=== PATIENT | male | born 1955 | race Caucasian/White ===

== ENCOUNTER 2017-02-17 06:10 | Day surgery (SDC) | payer OTHER ==
[~2017-02-17] VITALS: Ht 182.9 cm; Wt 98.3 kg
[2017-02-17] VITALS (18 sets, daily range): BP systolic 99–137; BP diastolic 57–92; PULSE 60–127; RESP 18; TEMP 97.8–98.7; O2SAT 94–97
[~2017-02-17 06:10] MED LIST: ASPI81 PO; ENAL20TA81 PO; ZOCO40TA PO
[2017-02-17] MEDS ORDERED: POVIDONE IODINE 5% (ANTISEPSIS KIT) 4 APPLICATIONS EACH NARE PRN (06:45)
[2017-02-17] MEDS ORDERED: INSULIN HUMAN REGULAR 1,000 UNITS/10 ML VIAL SQ PRN (06:45)
[2017-02-17] MEDS ORDERED: CHLORHEXIDINE GLUCONATE 2 % 1 PACK (2 CLOTHS) TOPICAL PRN (06:45)
[2017-02-17] MEDS ORDERED: ceFAZolin 2 GM PREMIX 50 ML IV SCH (06:45)
[2017-02-17] MEDS ORDERED: LACTATED RINGER'S 1000 ML IV PRN (06:45)
[2017-02-17] MEDS ORDERED: CHLORHEXIDINE GLUCONATE 2 % 1 PACK (2 CLOTHS) TOPICAL SCH (06:45)
[2017-02-17] MEDS ORDERED: POVIDONE IODINE 5% (ANTISEPSIS KIT) 4 APPLICATIONS EACH NARE SCH (06:45)
[2017-02-17] MEDS ORDERED: METOPROLOL TARTRATE 25 MG TAB PO PRN (06:45)
[2017-02-17] MEDS ORDERED: MUPIROCIN 2% OINT 1 APPLIC/GM SYR NASAL SCH (06:45)
[2017-02-17] MEDS ORDERED: SODIUM CHLORID 0.9% 500 ML IV PRN (06:45)
[2017-02-17 07:04] LABS: BASOPHIL # 0.1 TH/MM3 (0-0.2); BASOPHIL % 1.2 % (0.0-2.0); EOSINOPHIL # 1.4 TH/MM3 (0-0.4); EOSINOPHIL % 11.3 % (0.0-4.0); HEMATOCRIT 42.2 % (39.0-51.0); HEMO FLAGS DIFF FINAL; LYMPH % 27.2 % (9.0-44.0); LYMPHOCYTE # 3.3 TH/MM3 (1.0-4.8); MEAN CELL VOLUME 92.2 FL (80.0-100.0); MEAN CORPUSCULAR HEMOGLOBIN 30.2 PG (27.0-34.0); MEAN CORPUSCULAR HGB CONC 32.7 % (32.0-36.0); MONO % 10.5 % (0.0-8.0); NEUT % 49.8 % (16.0-70.0); PLATELET COUNT 279 TH/MM3 (150-450); RED BLOOD COUNT 4.58 MIL/MM3 (4.50-5.90); RED CELL DISTRIBUTION WIDTH 13.8 % (11.6-17.2)
[2017-02-17] MEDS ORDERED: POTA10CA PO (07:14)
[2017-02-17] MEDS ORDERED: APIX5TAB PO (07:14)
[2017-02-17] MEDS ORDERED: METO50TA PO (07:14)
[2017-02-17] MEDS ORDERED: ASPI81TA5 PO (07:14)
[2017-02-17] MEDS ORDERED: LISI-515 PO (07:14)
[2017-02-17] MEDS ORDERED: FURO40TA PO (07:14)
[2017-02-17] MEDS ORDERED: ATOR1TAB18 PO (07:14)
[2017-02-17 07:16] LABS: APTT (PATIENT) 27.4 SEC (24.3-30.1); PROTHROMBIN TIME - PATIENT 10.6 SEC (9.8-11.6)
[2017-02-17 07:27] LABS: BICARBONATE 24.3 MEQ/L (21.0-32.0); POTASSIUM 6.1 MEQ/L (3.5-5.1)
[2017-02-17] MEDS ORDERED: PROPOFOL 200 MG/20 ML AMP IV ONE (07:30)
[2017-02-17] MEDS ORDERED: SODIUM CHLORID 0.9% 500 ML BAG IV ONE (07:30)
[2017-02-17] MEDS ORDERED: KETAMINE HCL 500 MG/10 ML VIAL ONE (07:47)
[2017-02-17] MEDS ORDERED: SODIUM CHLOR 0.9% 250 ML INJ 250 ML ONE (08:04)
[2017-02-17] MEDS ORDERED: ISOPROTERENOL HCL 1 MG/5 ML AMP ONE (08:04)
[2017-02-17] MEDS ORDERED: LIDOCAINE HCL 2% 50 ML VIAL ONE (08:08)
[2017-02-17] MEDS ORDERED: VANCOMYCIN HCL 1000 MG VIAL ONE (08:08)
[2017-02-17] MEDS ORDERED: VANCOMYCIN 500 MG VIAL ONE (08:08)
[2017-02-17] MEDS ORDERED: ceFAZolin INJ 1,000 MG VIAL ONE (08:09)
--- NOTE | 2017-02-17 08:42 | CATHPROC ---
[facility] HIS Report Study Information Study Number Scheduled Start Study Start 0969-17 02/17/2017 Feb 17 2017 7:41AM Referring Institution Admit Source Facility Department 1 Other [facility] - Gas Operation Manager Physician and Clinical Staff Initial Israel Villagran Sanitary Landfill Supervisor Mike Aguilar,RT(R) Sanitary Landfill Supervisor Joanne Blount,GIS PROGRAMMER TECH2 Other Anesthesia, SHUTTLE ROUTE VEHICLE OPERATOR Recorder Maryjo Lainez,RN Scrub Sonya Hernandez,RT(R) TECH2 Procedures Performed Procedure Cardioversion Equipment Time Bods Developer Description Size Mfg Part Number Used/Scraped [id number] 07:43 MEDLINE INDUSTRIES PACK, CCL CUSTOM * Used *[id number] 07:43 MEDLINE PACER ASTORGA, LIMB * 2530 Used [id number] 07:43 [place] [employer] BLANKET,WARM AIR CCL * Used *[id number] 07:44 [employer] MEDICAL CATHETER, JSN, QUAD FR 5 Used *[id number] 07:44 [employer] MEDICAL CATHETER, JSN, QUAD FR 5 Used *[id number] 07:44 [employer] MEDICAL CATHETER, JSN, QUAD FR 5 Used *[id number] 07:44 [employer] MEDICAL CATHETER, JSN, QUAD FR 5 Used *[id number] 07:43 [employer] MEDICAL SHEATH, EPS, FR5 FAST CATH FR 5 Used *[id number] 07:43 [employer] MEDICAL SHEATH, EPS, FR5 FAST CATH FR 5 Used *[id number] 07:43 [employer] MEDICAL SHEATH, EPS, FR5 FAST CATH FR 5 Used *[id number] 07:43 [employer] MEDICAL SHEATH, EPS, FR6 FAST CATH FR 6 [id number] Used History: Risk Factors Family History of Hypertension Dyslipidemia Previous MS Previous Heart Failure Premature CAD Yes Yes Yes No Yes Prior Valve Prior PCI Prior CABG Prior CABGDate Surgery Yes No Yes 01/31/2001 Cerebrovascular Peripheral Artery Chronic Lung On Dialysis Diabetes Disease Disease Disease No No No No No Medication Medication Total Dose (Bolus/Oral) Medication Total Dosage/Unit 1% XYLOCAINE 20 mL Medications (Bolus/Oral) Medication Time Given Dosage/Unit Administered By Reason 1% XYLOCAINE 02/17/2017 8:10:29 AM 20 mL Israel Biggs 20 mL 1% XYLOCAINE given in lab by Israel Biggs in Right Groin via Subcutaneous. Medication (Drip) Medication Time Given Dosage/Unit Concentration/Unit Diluent (ml) Solution ISUPREL 02/17/2017 8:30:08 AM 4 mcg/min 1 mg 250 NaCl .9 4 mcg/min ISUPREL given in lab by Israel Biggs via Peripheral IV. Pump/Drip Flow = 60 ml/hr using Na Cl .9 with a concentration of 1 mg in 250 ml. Ordered by Israel Biggs. ISUPREL DRIP STOPPED 02/17/2017 8:33:32 AM 0 units/hr 0 0 units/hr ISUPREL DRIP STOPPED given in lab by Israel Biggs. Pump/Drip Flow = 0 ml/hr using [Soluti on Name]. Ordered by Israel Biggs. Initial Case Assessment Cardiovascular HR Rhythm NIBP Chest Pain 82 AFIB 124/80 0 Edema Present Skin color Skin None Normal Warm Dry Circulatory - Right Pulses Dorsalis Pedis 1 Scale (0,1,2,3,4,d) Circulatory - Left Pulses Dorsalis Pedis 1 Scale (0,1,2,3,4,d) Neurological State Oriented to time-place- Alert Moves all extremities person Respiration - General Respiration Rate SpO2 (%) O2 (lpm) (B/min) 18 99 2 Chronological Log Time Study Chronological Log 7:30:10 Patient arrived via Bed. 7:30:15 Patient Name, D.O.B, / Armband Verified By R.N. 7:30:35 Anesthesia at bedside. Assumes care of patient. See records for all meds and vitals during procedure 7:31:00 Verbal Stimulation=2 Physical Stimulation=2 Airway=2 Respiration=2 TOTAL=8. (0=absent, 1=li mited, 2=present) 7:35:55 Skin Breakdown- non per patient 7:40:00 Patient Warmer Placed on the Table. 7:44:00 Disposable Defibrillator Pads Placed On Patient. 7:44:00 Mathieu Prominences Protected 7:45:00 History and physical on the chart or being dictated. Assessment: Initial Case, HR=82 BPM, Rhythm=AFIB, RBCJ=613/80 mmhg, Chest Pain=0, Edema=None, Color=Normal, Skin = Warm, Dry Right Pulses: Larry Ped=1 7:48:00 Left Pulses: Larry Ped=1 Neurological: State=Alert, Ox3, INFANTE Respiration: Resp=18 B/min, SpO2=99 %, O2=2 lpm 7:49:00 Table restraints applied according to hospital policy 7:50:00 Bilateral groins prepped with 2% chlorhexidine, and with a 3 min. waiting time. 7:50:28 Patient has been NPO for More than 6Hrs. 7:50:55 MD paged 7:50:56 A # 20 IV was noted in the Hand (left). Grade = 0 7:50:59 A # 20 IV was noted in the Forearm (right). Grade = 0 7:52:01 MD responded 7:52:29 Reference ECG taken Time Out. Correct patient, procedure, procedure equipment, site and side verified with physician present. Time 8:10:17 concurred by MD, individual staff and SHUTTLE ROUTE VEHICLE OPERATOR. Time Out #2 - Consents verified, patient in correct position, all results are labled and display ed, safety precautions 8:10:21 taken, antibiotics administered. Time out concurred by MD, individual staff and SHUTTLE ROUTE VEHICLE OPERATOR in procedur e 8:10:26 Case Start 8:10:29 20 mL 1% XYLOCAINE given in lab by Israel Biggs in Right Groin via Subcutaneous. 8:16:30 Vascular access was obtained in the Fem Vein (right). 8:16:33 Vascular access was obtained in the Fem Vein (right). 8:16:33 Vascular access was obtained in the Fem Vein (right). 8:16:34 Vascular access was obtained in the Fem Vein (right). 8:16:37 A SHEATH, EPS, FR5 FAST CATH FR 5 was advanced into the Fem Vein (right) using the Modified Seldinger technique. 8:17:39 A SHEATH, EPS, FR5 FAST CATH FR 5 was advanced into the Fem Vein (right) using the Modified Seldinger technique. 8:17:42 A SHEATH, EPS, FR5 FAST CATH FR 5 was advanced into the Fem Vein (right) using the Modified Seldinger technique. 8:17:44 A SHEATH, EPS, FR6 FAST CATH FR 6 was advanced into the Fem Vein (right) using the Modified Seldinger technique. A CATHETER, JSN, QUAD FR 5 was advanced vis Fem Vein (right) and placed in the CS. Placement was visually 8:17:58 confirmed under fluoroscopy. A CATHETER, JSN, QUAD FR 5 was advanced vis Fem Vein (right) and placed in the HRA. Placement wa s visually 8:18:08 confirmed under fluoroscopy. A CATHETER, JSN, QUAD FR 5 was advanced vis Fem Vein (right) and placed in the RVA. Placement wa s visually 8:18:28 confirmed under fluoroscopy. A CATHETER, JSN, QUAD FR 5 was advanced vis Fem Vein (right) and placed in the HIS. Placement wa s visually 8:19:02 confirmed under fluoroscopy. 8:19:19 EP STUDY IN PROGRESS 4 mcg/min ISUPREL given in lab by Israel Biggs via Peripheral IV. Pump/Drip Flow = 60 ml/hr usi ng NaCl .9 with a 8:30:08 concentration of 1 mg in 250 ml. Ordered by Israel Biggs. 0 units/hr ISUPREL DRIP STOPPED given in lab by Israel Biggs. Pump/Drip Flow = 0 ml/hr using [S olution Name]. 8:33:32 Ordered by Israel Biggs. 8:36:46 EP STUDY COMPLETE 8:37:06 ECG rhythm of AF noted. Patient cardioverted at 200 joules. ~RESULTS~ 8:37:47 EP Procedure was performed. 8:38:09 Case End 8:38:19 Catheter(s) removed without difficulty 8:38:35 Sheath removed; pressure applied to access site by Mike Wolfe. MANUAL PRESSURE HELD FOR 10 MS NS 8:38:52 Sterile dressing applied to site 8:38:55 No case complications noted. 8:38:58 Cine recording checked. End Study - Contrast Media Used In Study Contrast Total Opened (mL) Total Used (mL) Total Wasted (mL) Unspecified 0 0 0 End Study - Radiation Exposure Fluoro Time (minutes) 1.1 End Study - Patient Disposition Complications Transferred To Interventional Outcome No Gas Operation Manager Holding successful
--- NOTE | 2017-02-17 09:28 | CATHPROC ---
Viscose Closures HIS Report Study Information Study Number Scheduled Start Study Start 0970-17 02/17/2017 Feb 17 2017 8:43AM Referring Institution Admit Source Facility Department 1 Other [facility] Drop Machine Operator Physician and Clinical Staff Initial Israel Villagran Retarder Operator Mike Aguilar,RT(R) Retarder Operator Joanne Blount,SENIOR ENERGY TRADER TECH2 Other Anesthesia, PAYROLL EXAMINER Recorder Maryjo Lainez,RN Recorder Romelia Pardo,BOBBY Scrub Soyna Hernandez,RT(R) TECH2 Procedures Performed Procedure Lead Insertion Equipment Time Retail Coordinator Description Size Mfg Part Number Used/Scraped DERMABOND, ADHESIVE SKIN [id number] 08:45 CORDIS/PACER * Used GLUE MINI *[id number] 08:45 MEDLINE INDUSTRIES SUTURE, STRIP PLUS 1/2" * Used *[id number] 08:45 MEDLINE PACER ASTORGA, LIMB * 2530 Used [id number] 08:45 MEDLINE PACER PACK, PACER CUSTOM * Used *[id number] 08:57 Needle Sponge Count 2 2 Used 08:57 Needle Sponge Count 2 22 Used 08:57 Needle Sponge Count 20 200 Used SUTURE, 0 ETHIBOND [CT1] (CX21D), 8pk SUTURE, 2-0 VICRYL [CT1] ([id number]) SUTURE, 2-0 VICRYL [CT1] (YIX955U) [id number] 08:45 [place] [employer] BLANKET,WARM AIR CCL * Used *[id number] DEFIBRILLATOR, FORTIFY 09:21 [employer] Y[employer] MEDICAL VVEVVVIRV [id number] Used ASSURA VR LEAD, DURATA ACTIVE FIXATION 7121Q-65 09:07 [employer] MEDICAL 65CM Used 7121/65 *[id number] [facility] PAD, ELECTROSURGICAL 08:45 * [id number] Used SURGICAL GROUNDING ORANGE 08:45 [employer] RADHA. ELECTRODE, PRO-PADZ BIPHASIC * [id number] Used Equipment Model, Serial, Lot Number and Expiration Data Description Model Number Serial Number Lot Number Expiration Da te DEFIBRILLATOR, FORTIFY ASSURA [id number] 11-30-2018 VR LEAD, DURATA ACTIVE FIXATION 7121Q-65 [id number] 11-02-2017 7121/65 Medication Medication Total Dose (Bolus/Oral) Medication Total Dosage/Unit 2% XYLOCAINE 50 mL Medications (Bolus/Oral) Medication Time Given Dosage/Unit Administered By Reason 2% XYLOCAINE 02/17/2017 8:57:39 AM 50 mL Anesthesia, PAYROLL EXAMINER 50 mL 2% XYLOCAINE given in lab by Anesthesia, PAYROLL EXAMINER in Left shoulder via Subcutaneous. Ordered by Hanscy. Domenic left upper chest Medication (Drip) Medication Time Given Dosage/Unit Concentration/Unit Diluent (ml) Solution ANCEF 02/17/2017 8:12:18 AM 2 g 2 g ANCEF given in lab by Anesthesia, PAYROLL EXAMINER via Peripheral IV. Ordered by Israel Biggs. VANCOMYCIN DRIP 02/17/2017 8:12:59 AM 1 g 1 g VANCOMYCIN DRIP given in lab by Anesthesia, PAYROLL EXAMINER via Peripheral IV. Ordered by Israel Biggs. Final Case Assessment Cardiovascular HR Rhythm NIBP Chest Pain 62 A FIB 107/76 0 Edema Present Skin color Skin None Normal Warm Dry Circulatory - Right Pulses Dorsalis Pedis 1 Scale (0,1,2,3,4,d) Circulatory - Left Pulses Dorsalis Pedis 1 Scale (0,1,2,3,4,d) Neurological State Oriented to time-place- Alert Moves all extremities person Respiration - General Respiration Rate SpO2 (%) O2 (lpm) (B/min) 18 97 2 Chronological Log Time Study Chronological Log 8:12:18 2 g ANCEF given in lab by Anesthesia, PAYROLL EXAMINER via Peripheral IV. Ordered by Israel Biggs. 8:12:59 1 g VANCOMYCIN DRIP given in lab by Anesthesia, PAYROLL EXAMINER via Peripheral IV. Ordered by Kamlesh Biggs 8:43:21 Initial procedure has been completed. Beginning additional procedure. 8:43:22 NOTE: This patient is undergoing an additional procedure while still in the Cardiac Cath La b. 8:43:25 Anesthesia at bedside. Assumes care of patient. 8:53:00 Reference ECG taken 8:57:35 Case Start 50 mL 2% XYLOCAINE given in lab by Anesthesia, PAYROLL EXAMINER in Left shoulder via Subcutaneous. Ordered by Israel Biggs. 8:57:39 left upper chest 9:03:12 Vascular access was obtained in the Subclav. Vein (Lft. 9:03:19 Surgical Incision Made. 9:03:21 A pocket was created at the L Upper Chest. 9:07:46 A sheath was advanced into the Subclav. Vein (Lft using the ~TECHNIQUE~ technique. 9:09:01 A LEAD, DURATA ACTIVE FIXATION 7121/65 65CM was inserted and positioned in the RV. 9:09:40 Lead placement verified under fluoroscopy 9:09:41 The RV lead impedance and threshold being tested. 9:12:40 The RV lead was sutured to the fascia. 9:14:34 Pocket flushed with antibiotic solution SECOND Sponge And Instrument Count Done by Sonya Hernandez, RT(R) TECH2. 9:14:45 Hypo's: 2, Sponges: 20, Bovie/scratch: 2 Sutures: 10, Blades: 1, Instruments: 26, Syveck Patches: 0 verified by Mike Ellison 9:15:40 A DEFIBRILLATOR, FORTIFY ASSURA VR VVEVVVIRV was connected and placed in the pocket. 9:15:59 The pocket was closed. 9:16:59 Case End FINAL Sponge And Instrument Count Done by Sonya Hernandez RT(R) TECH2. 9:18:00 Hypo's: 2, Sponges: 20, Bovie/scratch: 2 Sutures: 10, Blades: 1, Instruments: 26, Syveck Patches: 0 verified by Mike Ellison 9:19:08 Implant Procedure was performed. 9:19:14 A ICD Implant . (Single) 9:22:07 DOCU called. Spoke to MAYRA 9:22:57 Steri-strips and a sterile dressing applied to site. Assessment: Final Case, HR=62 BPM, Rhythm=A FIB, WVAA=100/76 mmhg, Chest Pain=0, Edema=None, Color=Normal, Skin = Warm, Dry Right Pulses: Larry Ped=1 9:23:05 Left Pulses: Larry Ped=1 Neurological: State=Alert, Ox3, INFANTE Respiration: Resp=18 B/min, SpO2=97 %, O2=2 lpm 9:23:09 Sterile dressing applied to site 9:23:10 No case complications noted. 9:23:11 Cine recording checked. 9:23:14 Bedside Report will be given. 9:23:15 Implantable Device card placed in patient's chart. 9:23:17 Defibrillator and ground pads removed. Skin intact. 9:26:21 Patient moved to stretcher End Study - Contrast Media Used In Study Contrast Total Opened (mL) Total Used (mL) Total Wasted (mL) Unspecified 0 0 0 End Study - Radiation Exposure Fluoro Time (minutes) 3.6 End Study - Patient Disposition Complications Transferred To Interventional Outcome No Telemetry Bed successful
[2017-02-17] MEDS ORDERED: DO NOT ADM ANY ANTICOAGULANT DRUGS PRN (09:30)
[2017-02-17] MEDS ORDERED: MIDAZOLAM HCL 2 MG/2 ML VIAL ONE (09:31)
[2017-02-17] MEDS ORDERED: LIDOCAINE HCL 1% 50 ML VIAL INFIL PRN (10:15)
[2017-02-17] MEDS ORDERED: LORazepam 2 MG/ML VIAL IV PRN (10:15)
[2017-02-17] MEDS ORDERED: oxyCODONE/ACETAMINOPHEN 5 MG/325 MG TAB PO PRN (10:15)
[2017-02-17] MEDS ORDERED: SODIUM CHLOR 0.9% 250 ML INJ 250 ML IV PRN (10:15)
[2017-02-17] MEDS ORDERED: ATROPINE SULFATE 1 MG/ML VIAL IV PRN (10:15)
[2017-02-17] MEDS ORDERED: BACITRACIN OINT 0.9 GM PKT TOP ONE (10:15)
[2017-02-17] MEDS: FUROSEMIDE 40 MG TAB PO SCH (10:15)
[2017-02-17] MEDS ORDERED: METOCLOPRAMIDE HCL 10 MG/2 ML VIAL IV PRN (10:15)
[2017-02-17] MEDS ORDERED: ONDANSETRON HCL 4 MG/2 ML VIAL IV PRN (10:15)
[2017-02-17] MEDS: LISINOPRIL 20 MG TAB PO SCH (10:15)
--- NOTE | 2017-02-17 10:15 | PD.CARD ---
SINGLE CHAMBER DEFIB IMPLANT PROCEDURE DATE: February 17, 2017 NYHA Classification: Class II (Mild) Prevention: Primary Single Chamber Defib Implant PROCEDURE: Single chamber defibrillator implantation. INDICATIONS: Mr. Marshall is a 61 -year-old male with hcx of CAD, CABG, aortic valve replacement, EF 21%, congestive heart failure who undergo defibrillator implantation for sudden primary prevention. The risks, the nature and the benefit of the procedure are clearly stated to him . Risks include pneumothorax, cardiac perforation, stroke and even . He understood and agreed to proceed. PROCEDURE: As written, informed consent was obtained prior to the electrophysiology study, the patient was kept on the table where he was prepped and draped in the sterile fashion. Conscious sedation was initiated and maintained throughout the procedure by anesthesiologist. Once sedation was verified, the left infraclavicular area was anesthetized with 2% Xylocaine. Using modified Seldinger technique, the left subclavian vein was cannulated on one occasion and one guide wire was advanced. Then, using #11 blade scalpel, a 3-cm incision was made two fingerbreadths below left clavicle. This incision was then taken down to the deep fascial layer using Bovie cautery and blunt dissection. Into the inferomedial direction, a device pocket was dissected, then the wire was dissected into the pocket. A 2-0 Vicryl suture was placed around the wires to prevent bleeding. At this point, over the wire, the 9- Vietnamese dilator and introducer was advanced. As dilator and wire were removed, an active fixation right ventricular pacing, sensing and defibrillatory lead was advanced. After adequate pacing and sensing thresholds were obtained, the lead was secured in the pocket with #2 Ethibond suture. At that point, the pocket was copiously irrigated with antibiotic solution. The leads were connected to the generator and placed into the pocket. I did not proceed with NIPS. I did proceed with wound closure. The deep fascial layer was approximated with 2-0 Vicryl suture in a continuous fashion. The subcutaneous layer was approximated with 2-0 Vicryl suture in a continuous fashion. The subcuticular layer was approximated with 2-0 Vicryl suture in a continuous fashion. Dermabond adhesive was applied to the wound, followed by a sterile pressure dressing. There was no complication. The patient tolerated procedure. Blood loss minimal. 1. Implanted Hardware: The implanted defibrillator generator is a [employer]ai, model number [id number], serial number [id number]. The right ventricular pacing, sensing and defibrillatory lead is a [employer] Shai model number 7121Q-65, serial number [id number]. 2. Thresholds: The right ventricular pacing threshold in the bipolar mode was 0.75 volts at 0.4 milliseconds, lead impedance 830 ohms and R-wave at >12.0 mV. The right ventricular defibrillatory threshold was not measured. 3. Settings: The device set in VVVI 40 defibrillatory portion for two zones, one zone for ventricular tachycardia between 160 and 240 beats per minute. Initial therapy consists of one burst of ATP, one ramp, 81%, 10 pulse, 10 millisecond decremental, followed by 20, then 30 and all subsequent shocks at 40 joules defibrillatory shock, the second zone for ventricular fibrillation above 240beats per minute, first therapy at 30 and all subsequent shocks at 40 joules defibrillatory shock. CONCLUSIONS: Successful defibrillator implantation. COMMENT AND RECOMMENDATIONS: The patient will be transferred to the telemetry unit, will be observed and when stable can be discharged home. Israel Biggs MD February 17, 2017 10:15
[2017-02-17] MEDS: oxyCODONE/ACETAMINOPHEN 5 MG/325 MG TAB PO PRN ×4 (10:32→22:51)
--- NOTE | 2017-02-17 10:41 | RADRPT ---
EXAM DATE/TIME: 02/17/2017 10:16 [place] COMPARISON: No previous studies available for comparison. INDICATIONS : Post pacemaker placement. MEDICAL HISTORY : Hypertension. SURGICAL HISTORY : CABG. Aortic valve replacement. ENCOUNTER: Initial ACUITY: 1 day PAIN SCORE: 0/10 LOCATION: Bilateral chest FINDINGS: A single view of the chest demonstrates the lungs to be symmetrically aerated with a small rounded in filtrate right midlung zone. The cardiomediastinal contours are unremarkable. Osseous structures ar e intact. Wires suggest CABG CONCLUSION: Small infiltrate right midlung zone with a rounded 1.5 cm density . Followup chest radiograph is rec ommended . Status post left subclavian ICD placement without complication. Jonny Aquino MD on February 17, 2017 at 10:37 Board Certified Radiologist. This report was verified electronically.
--- NOTE | 2017-02-17 11:00 | MA ---
cc: LUIS ANGEL FLYNN M.D. DATE 02/17/2017 PROCEDURE PERFORMED Electrophysiology study, CS cannulation, repeat electrophysiology study on Isuprel infusion. INDICATIONS Mr. Marshall is a 61-year-old gentleman with congestive heart failure, coronary artery disease, coronary bypass grafting, aortic valve replacement, ejection fraction 21%. Previous ejection fraction was 15%. He is referred for electrophysiology study and defibrillator insertion. The risks, the nature and the benefit of the procedure are clearly stated to him. The risks include pneumothorax, cardiac perforation, stroke and even . The patient understood and agreed to proceed. The patient on optimal medical treatment for over three-months. JORDAN may be reevaluated because of hyperkaliemia. PROCEDURE After written informed consent was obtained, the patient was brought to the EP lab where he was prepped and draped in the usual sterile fashion. Conscious sedation was initiated and maintained throughout the procedure by anesthesiologist. Once sedation verified, the right inguinal area was anesthetized with 2% Xylocaine. Using modified Seldinger technique, the right femoral vein was cannulated on four occasions and four guidewires were advanced over the wire, three 5 and a 6-Macedonian Hemaquet were advanced. Then under fluoroscopic guidance through the 5 and 6-Macedonian Hemaquet, four 5-Macedonian Reena curved quadripolar electrophysiology catheters were advanced and positioned on the His, upper right atrium, coronary sinus and right ventricular apex. Basic interval was measured. The patient was in atrial fibrillation. HV was around 40 milliseconds. Then ventricular pacing protocol was performed. Ventricular pacing protocol consists of incremental ventricular pacing as well as program stimulation with one drive train cycle length and up to three excess stimuli delivered. No tachyarrhythmia was induced. Then Isuprel infusion was initiated. Ventricular pacing protocol was repeated again. Blood pressure systolic was in the 70's. I decided to DC Isuprel and terminated the procedure. All catheters and Hemaquet were removed. The patient is going to be kept on the table and a single chamber defibrillator will be implanted for sudden primary prevention. At that point, I attempt to cardiovert the patient. The 300 sync biphasic joule was delivered that failed to convert the patient into sinus rhythm. No incident report. CONCLUSION 1. Electrocardiogram: At baseline, the patient was in atrial fibrillation. Postprocedure, electrocardiogram was unchanged. 2. Basic interval: The base cycle length was around 700 milliseconds. HV at 40 milliseconds. 3. Ventricular pacing protocol: No tachyarrhythmia was induced. CONCLUSION 1. Negative electrophysiology study for a ventricular tachyarrhythmia. 2. Atrial fibrillation and a failed cardioversion, COMMENT AND RECOMMENDATIONS The patient will be kept on the table and a single chamber defibrillator will be implanted for sudden primary prevention. MD AMADO Lawler/DEBBIE /10:19 AM /10:42 AM
[2017-02-17] MEDS: ceFAZolin 2 GM PREMIX 50 ML IV SCH ×2 (15:23→22:52)
[2017-02-17] MEDS: APIXABAN 5 MG TABLET PO SCH (19:50)
[2017-02-17] MEDS: METOPROLOL TARTRATE 50 MG TAB PO SCH (19:51)
[2017-02-17] MEDS ORDERED: ATORVASTATIN 80 MG TAB PO SCH (21:00)
[2017-02-18] VITALS (13 sets, daily range): BP systolic 119–133; BP diastolic 81–91; PULSE 56–93; RESP 20; TEMP 97.8–98.1; O2SAT 94–96
[2017-02-18] MEDS: oxyCODONE/ACETAMINOPHEN 5 MG/325 MG TAB PO PRN (08:19)
[2017-02-18] MEDS: ceFAZolin 2 GM PREMIX 50 ML IV SCH (08:20)
[2017-02-18] MEDS: FUROSEMIDE 40 MG TAB PO SCH (08:21)
[2017-02-18] MEDS: APIXABAN 5 MG TABLET PO SCH (08:21)
[2017-02-18] MEDS: METOPROLOL TARTRATE 50 MG TAB PO SCH (08:22)
[2017-02-18] MEDS: LISINOPRIL 20 MG TAB PO SCH (08:22)
--- NOTE | 2017-02-18 08:23 | PD.CARD.PN ---
Subjective Subjective Remarks Feels okay status post ICD implantation. Objective Medications Current Medications Medications (Trade) Dose Ordered Sig/David Route Start Time Stop Time Status Last Admin (Percocet 5-325 Mg) 1 tab Q4H PRN PO 02/17/17 10:15 02/18/17 04:31 (Percocet 5-325 Mg) 2 tab Q4H PRN PO 02/17/17 10:15 02/17/17 22:51 (Ativan Inj) 0.5 mg UNSCH PRN IV 02/17/17 10:15 02/18/17 10:14 Atropine Sulfate 0.5 mg 0.5 mg UNSCH PRN IV 02/17/17 10:15 (NS 250 ml Inj) 250 ml @ 500 mls/hr ONCE PRN IV 02/17/17 10:15 02/18/17 10:14 (Reglan Inj) 10 mg Q4H PRN IV 02/17/17 10:15 (Zofran Inj) 4 mg Q4H PRN IV 02/17/17 10:15 Lidocaine HCl 10 ml 10 ml UNSCH PRN INFIL 02/17/17 10:15 02/18/17 10:14 (Ancef 2 Gm Premix) 50 ml @ 100 mls/hr Q8H IV 02/17/17 16:00 02/18/17 08:29 02/17/17 22:52 (Eliquis) 5 mg BID PO 02/17/17 21:00 02/17/17 19:50 (Ecotrin Ec) 81 mg DAILY PO 02/18/17 09:00 (Lipitor) 80 mg HS PO 02/17/17 21:00 02/17/17 19:50 (Lasix) 40 mg DAILY PO 02/17/17 10:15 02/17/17 10:15 (Prinivil) 20 mg DAILY PO 02/17/17 10:15 (Lopressor) 50 mg BID PO 02/17/17 21:00 02/17/17 19:51 Miscellaneous Information ALL NURSING DEPARTME... UNSCH PRN .XX 02/17/17 09:30 02/18/17 09:29 Vital Signs / I&O Vital Signs Date Time Temp Pulse Resp B/P Pulse Ox O2 Delivery O2 Flow Rate FiO2 02/18/17 06:01 85 02/18/17 05:07 63 02/18/17 04:38 56 02/18/17 04:34 97.8 78 133/81 94 02/18/17 03:45 79 02/18/17 02:00 70 02/18/17 01:00 72 02/18/17 00:00 80 02/17/17 23:38 97.8 82 123/88 94 02/17/17 23:00 94 02/17/17 22:00 82 02/17/17 21:00 80 02/17/17 20:46 96 02/17/17 20:00 126 02/17/17 19:00 99 02/17/17 19:00 97.9 102 132/91 94 02/17/17 18:03 127 02/17/17 17:05 106 02/17/17 16:04 105 02/17/17 15:34 18 02/17/17 15:07 96 21 02/17/17 15:05 98 02/17/17 15:05 98.0 92 18 117/76 95 02/17/17 14:01 97 02/17/17 13:05 104 02/17/17 12:28 83 02/17/17 11:20 98.7 61 18 99/57 95 02/17/17 11:20 63 02/17/17 10:18 60 I/O 02/17/17 02/17/17 02/17/17 02/18/17 02/18/17 02/18/17 07:00 15:00 23:00 07:00 15:00 23:00 Intake Total 695 ml 480 ml Output Total 1300 ml 550 ml Balance -605 ml -70 ml Intake Oral 600 ml 480 ml IV Total 95 ml Output Urine Total 1300 ml 550 ml # Bowel Movements 0 Physical Exam GENERAL: Well-nourished, well-developed patient. SKIN: Warm and dry. Left chest wall incision well approximated without erythema or drainage. HEAD: Normocephalic. EYES: No scleral icterus. No injection or drainage. NECK: Supple, trachea midline. No JVD or lymphadenopathy. CARDIOVASCULAR: Regular rate and rhythm without murmurs, gallops, or rubs. RESPIRATORY: Breath sounds equal bilaterally. No accessory muscle use. GASTROINTESTINAL: Abdomen soft, non-tender, nondistended. EXTREMITIES: No cyanosis, or edema. NEUROLOGICAL: Awake, alert, and oriented x 3. Non-focal. Laboratory Laboratory Tests Test 02/17/17 02/18/17 10:00 04:30 Potassium Level 4.4 MEQ/L Prothrombin Time 11.0 SEC Prothromb Time International 1.0 RATIO Ratio Imaging Last Impressions Chest X-Ray 02/17/17 0000 Signed Impressions: Service Date/Time: January 10:16 - CONCLUSION: Small infiltrate right midlung zone with a rounded 1.5 cm density . Followup chest radiograph is recommended . Status post left subclavian ICD placement without complication. Jonny Aquino MD Assessment and Plan Problem List: (1) Cardiomyopathy Assessment and Plan: Medications optimized to include metoprolol and lisinopril. Ejection fraction 21%. (2) S/P ICD (internal cardiac defibrillator) procedure Assessment and Plan: Stable status post single-chamber ICD implantation for sudden cardiac prevention. Discharge home, follow-up with Dr. Biggs in 2 weeks per my discussion with him. Problem Qualifiers (1) Cardiomyopathy: Qualified Code: I25.5 - Ischemic cardiomyopathy Nadja Liao February 18, 2017 08:23
[2017-02-18] MEDS ORDERED: CEPH-460 PO (08:24)
[2017-02-18] MEDS ORDERED: ASPIRIN EC 81 MG TABEC PO SCH (09:00)
--- NOTE | 2017-02-18 20:57 | EKG ---
Date Performed: 02/18/2017 Time Performed: 05:58:40 PTAGE: 61 years EKG: Regular supraventricular rhythm Possible inferior infarct - age undetermined Lateral T wave changes may be due to myocardial ischemia Abnormal ECG NO PREVIOUS TRACING DOCTOR: Mateo Timmons Interpretating Date/Time 02/18/2017 20:56:10
--- NOTE | 2017-02-18 22:05 | EKG ---
Date Performed: 02/17/2017 Time Performed: 07:15:00 PTAGE: 61 years EKG: Atrial fibrillation. Possible inferior infarct - age undetermined Lateral T wave changes ma y be due to myocardial ischemia Abnormal ECG PREVIOUS TRACING : 01/26/2008 07.43 Compared to the previous tracing afib is new DOCTOR: Mateo Timmons Interpretating Date/Time 02/18/2017 22:05:16
[2017-02-19] MEDS ORDERED: METO-426 PO (12:42)
== END 2017-02-18 10:50 | disposition home or self-care (01) ==
LOC: HCAT 06:10 → HDIC 06:11 → HCIN 10:19 → HCAT 02-18 10:50 → HCIN 02-18 10:52
PROVIDERS: ATTEND Internal Medicine Interventional Cardiology
DX: I11.0 Hypertensive heart disease with heart failure (principal); I50.9 Heart failure, unspecified; I25.5 Ischemic cardiomyopathy; I47.2 Ventricular tachycardia; I48.91 Unspecified atrial fibrillation; R06.02 Shortness of breath; Z79.82 Long term (current) use of aspirin; Z87.891 Personal history of nicotine dependence
CPT/HCPCS: 00530; 33249; 71010; 80048; 84132; 85025; 85610; 85730; 86850; 86900; 86901; 92960; 93005; 93620; 93623; C1722; C1730; C1895; J0690; J2250; J3010; J3370; J7040; J7050

== ENCOUNTER 2017-02-19 10:20 | Emergency (ER) | payer OTHER ==
[~2017-02-19] VITALS: Ht 182.9 cm; Wt 100.0 kg
[~2017-02-19 10:20] MED LIST changes: +APIX5TAB PO; -ASPI81 PO; +ASPI81TA5 PO; +ATOR1TAB18 PO; +CEPH-460 PO; -ENAL20TA81 PO; +FURO40TA PO; +LISI-515 PO; +METO50TA PO; -ZOCO40TA PO
[2017-02-19 10:25] VITALS: BP 198/94; PULSE 103; RESP 22; TEMP 98.6; O2SAT 94
[2017-02-19 10:27] VITALS: RESP 22; O2SAT 94
[2017-02-19] MEDS ORDERED: SODIUM CHLORIDE 0.9% FLUSH 10 ML FLUSH IVF PRN (10:30)
--- NOTE | 2017-02-19 10:41 | PD ---
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 Patient states that he is doing well since the implant, a symptomatic without chest pain , shortness of breath, palpitations, lightheadedness, etc. All of a sudden he felt "a lightening bolt" hit him, and then over the course of the next 30-60 seconds he had 2 more similar symptoms that patient stated where his AICD defibrillating him. Approximately half an hour later he had a recurrent episode of a series of 3 defibrillation's. Patient has been asymptomatic now for the last 30 minutes. He is device was implanted just [address] Biggs, is a [employer] device. PFSH Past Medical History Cancer: No Cardiovascular Problems: Yes Chest Pain: No Diabetes: No Gastrointestinal Disorders: No Glaucoma: No Genitourinary: No Hepatitis: No Hiatal Hernia: No Hypertension: Yes Musculoskeletal: No Neurologic: No Psychiatric: No Reproductive: No Respiratory: No Integumentary: No Thyroid Disease: No Past Surgical History Cardiac Surgery: Yes (CABG, AVR ) Thoracic Surgery: Yes (CABG,AVR) Social History Tobacco Use: No Allergies-Medications (Allergen,Severity, Reaction): Coded Allergies: No Known Allergies (Verified , 01/26/08) Reported Meds & Prescriptions Reported Meds & Active Scripts Active Keflex (Cephalexin) 500 Mg Cap 500 Mg PO Q8H Reported Metoprolol Tartrate 50 Mg Tab 50 Mg PO BID Lisinopril 20 Mg Tab 20 Mg PO DAILY Furosemide 40 Mg Tab 40 Mg PO DAILY Eliquis (Apixaban) 5 Mg Tab 5 Mg PO BID Atorvastatin (Atorvastatin Calcium) 80 Mg Tab 80 Mg PO HS Aspirin DR (Aspirin) 81 Mg Tabdr 81 Mg PO DAILY Review of Systems Except as stated in HPI: all other systems reviewed are Neg Physical Exam Narrative GENERAL: Well-appearing male in no acute distress SKIN: Focused skin assessment warm/dry. HEAD: Normocephalic. EYES: No scleral icterus. No injection or drainage. ENT: Mucous membranes pink and moist. NECK: Supple CARDIOVASCULAR: Regular rate and rhythm. No murmur appreciated. Device left upper chest wall suture lines intact without erythema, swelling RESPIRATORY: No accessory muscle use. Clear to auscultation. Breath sounds equal bilaterally. GASTROINTESTINAL: Abdomen soft, non-tender, nondistended. MUSCULOSKELETAL: No obvious deformities. No edema. NEUROLOGICAL: Awake and alert. Normal speech. PSYCHIATRIC: Appropriate mood and affect; insight and judgment normal. Data Data Last Documented VS Vital Signs Date Time Temp Pulse Resp B/P Pulse Ox O2 Delivery O2 Flow Rate FiO2 02/19/17 12:00 74 16 122/73 94 Room Air 02/19/17 10:25 98.6 Orders Electrocardiogram (02/19/17 10:26) Basic Metabolic Panel (Bmp) (02/19/17 10:26) Complete Blood Count With Diff (02/19/17 10:26) Magnesium (Mg) (02/19/17 10:26) Chest, Single Ap (02/19/17 10:26) Ecg Monitoring (02/19/17 10:26) Iv Access Insert/Monitor (02/19/17 10:26) Oximetry (02/19/17 10:26) Sodium Chloride 0.9% Flush (Ns Flush) (02/19/17 10:30) Metoprolol Tartrate (Lopressor) (02/19/17 11:00) Metoprolol Tartrate Inj (Lopressor Inj) (02/19/17 11:00) Labs Laboratory Tests Test 02/19/17 10:20 White Blood Count 13.0 TH/MM3 Red Blood Count 4.49 MIL/MM3 Hemoglobin 13.8 GM/DL Hematocrit 40.9 % Mean Corpuscular Volume 91.1 FL Mean Corpuscular Hemoglobin 30.7 PG Mean Corpuscular Hemoglobin 33.7 % Concent Red Cell Distribution Width 13.9 % Platelet Count 258 TH/MM3 Mean Platelet Volume 8.3 FL Neutrophils (%) (Auto) 61.2 % Lymphocytes (%) (Auto) 18.3 % Monocytes (%) (Auto) 10.0 % Eosinophils (%) (Auto) 9.5 % Basophils (%) (Auto) 1.0 % Neutrophils # (Auto) 8.0 TH/MM3 Lymphocytes # (Auto) 2.4 TH/MM3 Monocytes # (Auto) 1.3 TH/MM3 Eosinophils # (Auto) 1.2 TH/MM3 Basophils # (Auto) 0.1 TH/MM3 CBC Comment DIFF FINAL Differential Comment Sodium Level 140 MEQ/L Potassium Level 4.0 MEQ/L Chloride Level 105 MEQ/L Carbon Dioxide Level 28.3 MEQ/L Anion Gap 7 MEQ/L Blood Urea Nitrogen 31 MG/DL Creatinine 1.04 MG/DL Estimat Glomerular Filtration 72 ML/MIN Rate Random Glucose 127 MG/DL Calcium Level 9.1 MG/DL Magnesium Level 2.2 MG/DL [id number] Medical Decision Making Medical Screen Exam Complete: Yes Emergency Medical Condition: Yes Medical Record Reviewed: Yes Differential Diagnosis 61-year-old male with history of CAD with previous CABG, CHF, last EF 21%, aVR, AICD placed on 02/17/17 for low EF CHF and sudden prevention here with complaint that his AICD has fired a total of 6 times this morning. Differential includes genuine defibrillator fire, inappropriate shock for arrhythmia, inappropriate fire, electrolyte abnormality. Narrative Course Patient placed on monitor, IV established and blood obtained. Twelve-lead EKG showed A. fib with RVR, rate 108. Heart rates on the monitor in the 90s to 100s , regular rhythm. Patient was given 50 mg metoprolol oral, 50 mg metoprolol IV. CBC, BMP, magnesium unremarkable. Portable chest x-ray obtained that by my read shows no acute abnormalities. [employer] membership sales representative page 2 interrogate patient's device. I spoke with Dr. Minor who agrees with the above plan. [employer] interrogate it patient's device. He was defibrillated 64 atrial fibrillation with RVR. Apparently none of the 3 discriminator's on the device to identify this returned on, and the membership sales representative did turn his son. The device functioned appropriately. After the above beta kimberly, heart rate is typically in the 70s, remained in A. fib, blood pressure now normalized into the 120 systolic. I spoke with Dr. Minor regarding increasing patient's home metoprolol dose, agreed to increase his 75 mg twice a day. Diagnosis Primary Impression: Atrial fibrillation with RVR Additional Impression: AICD discharge Referrals: Israel Biggs MD 2 weeks Additional Instructions: Follow-up with Dr. Biggs in 2 weeks as scheduled. Med/Other Pt SpecificInfo: Existing Med Changed Scripts Metoprolol Tartrate 75 Mg Tab75 Mg PO BID #60 TAB Ref 0 Prov:Hazel Ly MD 02/19/17 Disposition: 01 DISCHARGE HOME Condition: Stable Hazel Ly MD February 19, 2017 10:41
[2017-02-19 10:45] LABS: BASOPHIL # 0.1 TH/MM3 (0-0.2); EOSINOPHIL # 1.2 TH/MM3 (0-0.4); EOSINOPHIL % 9.5 % (0.0-4.0); HEMATOCRIT 40.9 % (39.0-51.0); HEMO FLAGS DIFF FINAL; LYMPH % 18.3 % (9.0-44.0); LYMPHOCYTE # 2.4 TH/MM3 (1.0-4.8); MEAN CELL VOLUME 91.1 FL (80.0-100.0); MEAN CORPUSCULAR HEMOGLOBIN 30.7 PG (27.0-34.0); MEAN CORPUSCULAR HGB CONC 33.7 % (32.0-36.0); NEUT % 61.2 % (16.0-70.0); PLATELET COUNT 258 TH/MM3 (150-450); RED BLOOD COUNT 4.49 MIL/MM3 (4.50-5.90); RED CELL DISTRIBUTION WIDTH 13.9 % (11.6-17.2)
[2017-02-19] MEDS ORDERED: METOPROLOL TARTRATE 5 MG/5 ML VIAL IV PUSH ONE (11:00)
[2017-02-19] MEDS ORDERED: METOPROLOL TARTRATE 50 MG TAB PO ONE (11:00)
[2017-02-19 11:03] LABS: BICARBONATE 28.3 MEQ/L (21.0-32.0); MAGNESIUM 2.2 MG/DL (1.5-2.5)
[2017-02-19 11:15] VITALS: BP 125/68; PULSE 74; RESP 18; O2SAT 98
--- NOTE | 2017-02-19 11:54 | RADRPT ---
EXAM DATE/TIME: 02/19/2017 10:44 [place] COMPARISON: CHEST SINGLE AP, February 17, 2017, 10:16. INDICATIONS : Palpitation. Patients defibrillator went off today. MEDICAL HISTORY : Hypertension. SURGICAL HISTORY : CABG. Valve replacement. Defibrillator. ENCOUNTER: Initial ACUITY: 1 day PAIN SCORE: 0/10 LOCATION: Bilateral chest FINDINGS: Single AP view of the chest. Focal right midlung opacity slightly decreased in size. Moderate cardiac silhouette enlargement unchanged. Median sternotomy wires. AICD. No evidence of pleural effusion or pneumothorax. CONCLUSION: Focal right midlung opacity again identified and slightly decreased in size. Recommend ra diographic followup to resolution. Misael Quintanilla MD on February 19, 2017 at 11:51 Board Certified Radiologist. This report was verified electronically.
[2017-02-19 12:00] VITALS: BP 122/73; PULSE 74; RESP 16; O2SAT 94
[2017-02-19] MEDS ORDERED: METO-426 PO (12:42)
--- NOTE | 2017-02-19 16:44 | EKG ---
Date Performed: 02/19/2017 Time Performed: 10:24:51 PTAGE: 61 years EKG: ATRIAL FIBRILLATION WITH RAPID VENTRICULAR RESPONSE ST DEVIATION AND MODERATE T-WAVE ABNORM ALITY, CONSIDER INFERIOR ISCHEMIA Compared to previous tracing, the patient now appears to be in atri al fibrillation with rapid ventricular rate ABNORMAL ECG PREVIOUS TRACING : 02/18/2017 05.58 DOCTOR: Marisol Minor Interpretating Date/Time 02/19/2017 16:42:23
== END 2017-02-19 12:57 | disposition home or self-care (01) ==
LOC: NEPC 10:20
DX: I48.91 Unspecified atrial fibrillation (principal); I10 Essential (primary) hypertension; Z95.1 Presence of aortocoronary bypass graft; Z95.810 Presence of automatic (implantable) cardiac defibrillator
CPT/HCPCS: 71010; 80048; 83735; 85025; 93005; 96374